=== PATIENT | female | born 1970 ===

== ENCOUNTER 2023-03-31 10:24 | Emergency (ER) | payer SELFPAY ==
[2023-03-31] MEDS ORDERED: Sodium Chloride 0.9% 2.5 ML Syringe FLUSH PRN (10:29)
[2023-03-31] MEDS ORDERED: Sodium Chloride 0.9% 10 ML Syringe FLUSH PRN (10:29)
[2023-03-31] MEDS ORDERED: Morphine 4 MG/ML Syringe IVPUSH STA ×3 (10:55→15:31)
[2023-03-31] MEDS ORDERED: Ondansetron 4 MG/2 ML SDV IVPUSH STA (10:55)
[2023-03-31] MEDS ORDERED: Sodium Chloride 0.9% 1,000 ML IV STA (10:55)
[2023-03-31 11:23] LABS: APPEARANCE,URINE SLT CLOUDY; BILIRUBIN,URINE NEGATIVE (NEGATIVE); COLOR,URINE YELLOW; GLUCOSE,URINE NEGATIVE (NEGATIVE); KETONES,URINE NEGATIVE (NEGATIVE); LEUKOCYTE ESTERASE,URINE SMALL (NEGATIVE); NITRITE,URINE POSITIVE (NEGATIVE); OCCULT BLOOD,URINE TRACE-INTACT (NEGATIVE); PROTEIN,URINE NEGATIVE (NEGATIVE); UROBILINOGEN,URINE 0.2 EU/dL (<2.0)
[2023-03-31 11:26] LABS: CORONAVIRUS COVID-19 NAA NEGATIVE (NEGATIVE); INFLUENZA A NAA NEGATIVE (NEGATIVE); INFLUENZA B NAA NEGATIVE (NEGATIVE)
[2023-03-31 11:28] LABS: RBC,URINE 0-2 (0-2/HPF)
[2023-03-31 11:29] LABS: BACTERIA,URINE 2+ (NEGATIVE); EPITHELIAL CELLS,URINE FEW (NONE-FEW)
[2023-03-31 11:29] LABS: BASOPHILS ABSOLUTE AUTO 0.06 K/uL (0.00-0.20); BASOPHILS PERCENT AUTO 0.5 % (0.0-1.0); EOSINOPHILS ABSOLUTE AUTO 0.09 K/uL (0.00-0.45); EOSINOPHILS PERCENT AUTO 0.7 % (0.0-6.0); HEMATOCRIT 43.9 % (37.0-47.0); HEMOGLOBIN 15.4 g/dL (12.0-16.0); IMMATURE GRAN ABSOLUTE AUTO 0.04 K/uL (0.00-0.05); IMMATURE GRAN PERCENT AUTO 0.3 % (0.0-0.4); LYMPHOCYTES ABSOLUTE AUTO 2.42 K/uL (1.00-4.80); LYMPHOCYTES PERCENT AUTO 19.1 % (24.0-44.0); MEAN CORPUSCULAR HEMOGLOBIN 30.6 pg (28.0-32.0); MEAN CORPUSCULAR HGB CONC 35.1 g/dL (32.0-36.0); MEAN CORPUSCULAR VOLUME 87.1 fL (83.0-99.0); MEAN PLATELET VOLUME 10.1 fL (9.4-12.3); MONOCYTES ABSOLUTE AUTO 0.95 K/uL (0.00-0.80); MONOCYTES PERCENT AUTO 7.5 % (0.0-8.0); NEUTROPHILS ABSOLUTE AUTO 9.11 K/uL (1.80-7.70); NEUTROPHILS PERCENT AUTO 71.9 % (41.0-71.0); PLATELET COUNT,PLT 346 K/uL (150-400); RED BLOOD CELL COUNT 5.04 M/uL (4.10-5.30); WHITE BLOOD CELL COUNT,WBC 12.67 K/uL (3.9-11.3)
[2023-03-31 11:45] LABS: HEMOGLOBIN A1C 7.9 %
[2023-03-31 11:47] LABS: A/G RATIO 0.8 (0.9-1.6); ALBUMIN 3.9 g/dL (3.4-5.0); BILIRUBIN TOTAL 0.7 mg/dL (0.2-1.0); CALCIUM 9.8 mg/dL (8.5-10.1); CARBON DIOXIDE,CO2 24.5 mmol/L (21.0-32.0); CREATININE 1.1 mg/dL (0.6-1.0); EST CRCL DRUG DOSING (CG) 57.52 mL/min; MAGNESIUM 1.3 mg/dL (1.8-2.4); POTASSIUM,K 3.8 mmol/L (3.5-5.1); PROTEIN TOTAL,TP 8.9 g/dL (6.4-8.2)
[2023-03-31] MEDS ORDERED: Iopamidol 755 MG/ML 500 ML Multipack Bottle IVPUSH STA (13:50)
== END 2023-03-31 16:19 | disposition home or self-care (01) ==
LOC: MW.ED 10:24
DX: K57.92 Diverticulitis of intestine, part unspecified, without perforation or abscess without bleeding (principal); N30.01 Acute cystitis with hematuria; Z20.822 Contact with and (suspected) exposure to COVID-19
CPT/HCPCS: 0240U; 36415; 74177; 80053; 81001; 81025; 83036; 83690; 83735; 84484; 85025; 85379; 87086; 87088; 87186; 96361; 96374; 96375; 96376; 99284; J2270; J2405; J3490; J7030; Q9967; 93005; 93010